=== PATIENT | female | born 1975 ===

== ENCOUNTER 2017-12-07 05:43 | Inpatient (IN) | payer OTHER ==
[2016-04-07 13:40] VITALS: BMI 25.4
[2017-12-07] MEDS ORDERED: Vasopressin 20 Units/ml Inj ONE (07:02)
[2017-12-07] MEDS ORDERED: ceFAZolin 1 gm in NS 0 GM/0 ML BAG IVPB ONE (07:02)
[2017-12-07] MEDS ORDERED: Sodium Chloride 0.9% 20 ML IV ONE (07:02)
[2017-12-07] MEDS ORDERED: Midazolam 2 MG/2 ML VIAL ONE (07:44)
[2017-12-07] MEDS ORDERED: Rocuronium 10 mg/ml (5 ml) ONE (07:44)
[2017-12-07] MEDS ORDERED: Propofol 10 mg/ml Inj (20 ML) ONE (07:44)
[2017-12-07] MEDS ORDERED: cefOXitin IV 2 gm in Dextrose 2 GM/50 ML BAG IVPB ONE (07:47)
[2017-12-07] MEDS ORDERED: Neostigmine Methylsulfate 3mg/3ml Syringe IV ONE (08:39)
[2017-12-07] MEDS ORDERED: Morphine 4 MG/ML VIAL ONE (08:39)
[2017-12-07] MEDS ORDERED: Bacitracin Ointment 30 GM TUBE ONE (08:49)
[2017-12-07] MEDS: HYDROmorphone 0.5 mg/0.5 ml ISec IVP PRN ×2 (09:21→10:10)
[2017-12-07] MEDS ORDERED: Lactated Ringer's 1,000 ML IV SCH (09:30)
[2017-12-07] MEDS ORDERED: Lactated Ringer's 1,000 ML IV ONE (10:00)
[2017-12-07] MEDS: cefOXitin IV 2 gm in Dextrose 2 GM/50 ML BAG IVPB SCH ×2 (16:30→23:58)
--- NOTE | 2017-12-07 20:28 | OP ---
PROCEDURE DATE: 12/07/2017 PREOPERATIVE DIAGNOSES: Fibroid uterus, menorrhagia. POSTOPERATIVE DIAGNOSES: Adenomyosis. PROCEDURES: Exploratory laparotomy, excision of adenomyosis. SURGEON: Nawaf Wilkinson MD. NEWSPAPER MANAGER: Chuck Neil MD ANESTHESIA: General. ESTIMATED BLOOD LOSS: 150 mL. COMPLICATIONS: Nil. FINDINGS: Globularly enlarged uterus about 14 week size with large area of adenomyosis on the anterior wall of the uterus, which was resected. No fibroids were palpable. Tubes and ovaries are normal on both the right and left side. DESCRIPTION OF PROCEDURE: After the risks, benefits, and alternatives of the planned procedures including but not limited to the infection, hemorrhage, deep vein thrombosis, atelectasis, pneumonia, pulmonary embolism, damage to the bladder, damage to the ureter, renal insufficiency, renal failure, wound infection, wound dehiscence, incisional hernia, keloid formation, damage to the large and small intestine, damage to the inferior vena cava and aorta, requiring extensive repair, anesthesia complications, risk of recurrence of fibroids and other complications were discussed with, but are not listed above. It has been explained to the patient and all her questions answered, informed consent was also obtained. Risk of persistence of bleeding were also discussed with the patient. The patient was taken to the operating room in a stable condition. Under acceptable left leg general anesthesia, she was prepped and draped in a sterile fashion after having been placed in a supine position. The abdomen was entered through a Pfannenstiel type incision, carried through the subcutaneous tissues with the fascia. Fascia was opened transversely and dissected off the rectus abdominis musculature. Rectus abdominis musculature was then in the midline to remove the parietal peritoneum, which was entered sharply and incised superiorly and inferiorly. An O'Ramón-O'Marie retractor was inserted into the abdomen. Uterus was arrogated from the pelvic cavity. The anterior wall of the uterus was infiltrated with Pitressin. A longitudinal incision was made over the anterior wall of the uterus and the area of adenomyosis was resected without entering the endometrial cavity. The excision site was then closed in layers with the first three layers being interrupted layers using 0 Vicryl suture and the superficial myometrium and serosa being closed using 0 Vicryl suture with good hemostasis. Peritoneal cavity was irrigated using copious amounts of saline. Evicel was applied to the excision site with excellent hemostasis. The abdomen was then closed in layers with 0 Chromic to the parietal peritoneum. Rectal muscles were reapproximated using interrupted sutures of 0 Chromic. Fascia was reapproximated using two separate running sutures of 0 Vicryl to maintain a midline. Subcutaneous tissues were reapproximated using interrupted sutures of 0 plane and initial skin incision was reapproximated using 4-0 Vicryl in the subcuticular fashion. Estimated blood loss of the procedure was 150 mL. Pad, needle and instrument counts were correct x2. There were no complications. Nawaf Wilkinson MD
[2017-12-07] MEDS ORDERED: Oxycodone/Acetaminophen 5/325 mg Tab PO PRN (20:40)
[2017-12-08 08:55] LABS: HEMOGLOBIN 7.5 g/dL (11.0-16.0); MEAN CELL VOLUME 57.4 fL (81.0-99.0); MEAN CORPUSCULAR HGB CONC 29.7 g/dL (33.0-37.0); MEAN PLATELET VOLUME 9.4 fL (7.2-11.7); RBC 4.4 Mil/uL (3.80-5.20); RED CELL DISTRIBUTION WIDTH 19.6 % (11.5-14.5); WHITE BLOOD COUNT 19.8 K/uL (4.8-10.8)
[2017-12-08] MEDS: cefOXitin IV 2 gm in Dextrose 2 GM/50 ML BAG IVPB SCH (09:00)
[2017-12-08] MEDS: Enoxaparin 40 mg Syringe SC SCH (09:23)
--- NOTE | 2017-12-08 13:46 | PN ---
DATE: 12/08/2017 SUBJECTIVE: The patient complains of mild incisional pain. PHYSICAL EXAMINATION: VITAL SIGNS: Stable. She is afebrile. ABDOMEN: Soft. Incision is clean and intact. Bowel sounds are normal. CHEST: Clear. CARDIAC: Reports normal heart sounds without any murmurs. LUNGS: Clear. EXTREMITIES: Nontender with no evidence of DVT. Zulema sign is negative. ASSESSMENT: The patient is status post myomectomy/excision of adenomyosis day #1. PLAN: To ambulate the patient. Advance diet as tolerated. Discontinue the intravenous fluid. Nawaf Wilkinson MD
[2017-12-08] MEDS ORDERED: Bisacodyl 5mg EC Tab PO ONE ×2 (14:00→17:30)
[2017-12-08] MEDS: Simethicone 80 mg Chewtab PO SCH ×3 (14:58→21:50)
[2017-12-08] MEDS ORDERED: Magnesium Hydroxide Susp 30 ml UD PO ONE (20:00)
[2017-12-09 00:53] VITALS: RESP 20
[2017-12-09 08:13] VITALS: BP 112/72; PULSE 65; TEMP 97.5; O2SAT 100
[2017-12-09 08:31] LABS: BASO % 0.4 % (0.0-2.0); EOS # 0.1 K/uL (0.0-0.7); EOS % 0.8 % (0.0-4.0); HEMOGLOBIN 7.3 g/dL (11.0-16.0); LYMPH # 2.4 K/uL (1.0-4.3); MEAN CELL VOLUME 56.6 fL (81.0-99.0); MEAN PLATELET VOLUME 9.4 fL (7.2-11.7); MONO # 0.6 K/uL (0.0-0.8); MONO % 4.7 % (0.0-10.0); NEUT % 76.1 % (50.0-75.0); RBC 4.3 Mil/uL (3.80-5.20); RED CELL DISTRIBUTION WIDTH 19.5 % (11.5-14.5); WHITE BLOOD COUNT 13.2 K/uL (4.8-10.8)
[2017-12-09] MEDS: Simethicone 80 mg Chewtab PO SCH (09:59)
[2017-12-09] MEDS: Enoxaparin 40 mg Syringe SC SCH (10:00)
== END 2017-12-09 10:41 | disposition home or self-care (01) | DRG 359 ==
LOC: C.9S 05:43 → C.4M 10:47
PROVIDERS: ADMIT Obstetrics & Gynecology Reproductive Endocrinology; ATTEND Obstetrics & Gynecology Reproductive Endocrinology
PROC: 0UB90ZZ Excision of Uterus, Open Approach (ICD-10-PCS; principal; 2017-12-07 07:30)
DX: N80.0 Endometriosis of uterus (principal); N92.0 Excessive and frequent menstruation with regular cycle

== ENCOUNTER 2017-12-14 11:13 | Emergency (ER) | payer OTHER ==
[2017-12-14 11:29] VITALS: BMI 27.3
[2017-12-14 11:31] VITALS: O2SAT 100
[2017-12-14] MEDS ORDERED: Sodium Chloride 0.9% 1,000 ML IV ONE (12:13)
[2017-12-14 12:30] LABS: BASO # 0.1 K/uL (0.0-0.2); BASO % 0.7 % (0.0-2.0); EOS # 0.1 K/uL (0.0-0.7); EOS % 1.2 % (0.0-4.0); HEMOGLOBIN 7.5 g/dL (11.0-16.0); LYMPH # 2.2 K/uL (1.0-4.3); LYMPH % 25.1 % (20.0-40.0); MEAN CELL VOLUME 57.3 fL (81.0-99.0); MEAN CORPUSCULAR HEMOGLOBIN 17.3 pg (27.0-31.0); MEAN CORPUSCULAR HGB CONC 30.2 g/dL (33.0-37.0); MEAN PLATELET VOLUME 9.1 fL (7.2-11.7); MONO # 0.6 K/uL (0.0-0.8); MONO % 7.2 % (0.0-10.0); NEUT # 5.8 K/uL (1.8-7.0); NEUT % 65.8 % (50.0-75.0); NRBC % 0.1 % (0.0-2.0); RBC 4.35 Mil/uL (3.80-5.20); RED CELL DISTRIBUTION WIDTH 20.3 % (11.5-14.5); WHITE BLOOD COUNT 8.8 K/uL (4.8-10.8)
[2017-12-14 12:37] LABS: SQUAMOUS EPITHIAL < 1 /hpf (0-5); URINE BILIRUBIN NEGATIVE (NEGATIVE); URINE BLOOD 3+ (NEGATIVE); URINE CLARITY Clear (Clear); URINE COLOR Colorless (YELLOW); URINE GLUCOSE (UA) NORMAL (Normal); URINE LEUKOCYTE ESTERASE TRACE Leu/uL (Negative); URINE PROTEIN NEGATIVE (NEGATIVE); URINE UROBILINOGEN NORMAL mg/dL (0.2-1.0)
--- NOTE | 2017-12-14 12:41 | C.PDOC ---
History Of Present Illness 42 y/o female with history of Anemia presents to ED with complaints of lower abdominal pain and vaginal bleeding for 3 days. Patient states she had a myomectomy on 12/07/17 and has a scheduled appointment with OB Dr Londono tomorrow , but pain was worse prompting visit to ED. Patient takes Tylenol #3 and Keflex at home. Patient admits to feeling lightheaded this morning, and denies fever or dysuria. Time Seen by Provider: 12/14/17 11:55 Chief Complaint (Nursing): Female Genitourinary History Per: Patient, [employer] ([facility] [place] [id number] via [employer]) History/Exam Limitations: language barrier Onset/Duration Of Symptoms: Days Current Symptoms Are (Timing): Still Present Past Medical History Reviewed: Historical Data, Nursing Documentation, Vital Signs Vital Signs: Last Vital Signs Temp 98.1 F 12/14/17 13:30 Pulse 71 12/14/17 13:30 Resp 18 12/14/17 13:30 BP 125/84 12/14/17 13:30 Pulse Ox 100 12/14/17 13:58 - Medical History PMH: No Chronic Diseases, Anemia Other Surgeries: Myomectomy - [facility] Procedures EXCISION OF UTERUS, OPEN APPROACH (12/07/17) Family History: States: Unknown Family Hx - Social History Hx Alcohol Use: No Hx Substance Use: No Review Of Systems Constitutional: Positive for: Sweats. Negative for: Fever, Chills Cardiovascular: Negative for: Chest Pain Respiratory: Negative for: Shortness of Breath Gastrointestinal: Negative for: Abdominal Pain Genitourinary: Positive for: Vaginal Bleeding, Pelvic Pain. Negative for: Dysuria Musculoskeletal: Negative for: Back Pain Skin: Negative for: Rash Physical Exam - Physical Exam Appears: Non-toxic, No Acute Distress Skin: Warm, Dry, Pale Head: Atraumatic, Normacephalic Eye(s): bilateral: Normal Inspection, EOMI, Conjunctiva Pale Oral Mucosa: Moist Neck: Supple Cardiovascular: Rhythm Regular Respiratory: Normal Breath Sounds, No Rales, No Rhonchi, No Wheezing Gastrointestinal/Abdominal: Soft, No Tenderness, No Guarding, No Rebound, Other (incisional wound on suprapubic area. 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 Patient remained afebrile, nontoxic and no signs of hemodynamic instability. 1252- spoke to Dr. Wilkinson, discussed including lab findings, states patient has anemia and this was not acute change. He states if patient stable to follow up at office tomorrow 11am Using wharf worker I discussed results with patient and the plan for discharge with follow up. She understands and will follow up. Disposition - Disposition Referrals: Nawaf Wilkinson MD [Staff Provider] - Disposition: HOME/ ROUTINE Disposition Time: 13:30 Condition: STABLE Additional Instructions: PLEASE SEE DR LONDONO IN OFFICE TOMORROW MORNING AT 11AM Instructions: Acute Pelvic Pain (DC) Forms: [employer] (Kazakh) - POA Present On Arrival: None - Clinical Impression Clinical Impression: Post-op pain, Vaginal bleeding - PA / CLERICAL OFFICE / Resident Statement MD/DO has reviewed & agrees with the documentation as recorded. - Scribe Statement The provider has reviewed the documentation as recorded by the Martinibmariusz Murphy All medical record entries made by the Eddie were at my direction and personally dictated by me. I have reviewed the chart and agree that the record accurately reflects my personal performance of the history, physical exam, medical decision making, and the department course for this patient. I have also personally directed, reviewed, and agree with the discharge instructions and disposition.
[2017-12-14 12:43] LABS: ALB/GLOB RATIO 1.2 (1.0-2.1); ALT/SGPT 24 U/L (9-52); AST/SGOT 19 U/L (14-36); BLOOD UREA NITROGEN 9 mg/dL (7-17); CALCIUM 8.9 mg/dl (8.6-10.4); GFR NON-AFRICAN AMERICAN > 60; INR 1.1; PROTHROMBIN TIME 11.8 SECONDS (9.7-12.2)
[2017-12-14] MEDS ORDERED: Morphine 4 MG/ML VIAL ONE (13:00)
[2017-12-14 13:32] VITALS: BP 125/84; PULSE 71; RESP 18; TEMP 98.1
== END 2017-12-14 13:38 | disposition home or self-care (01) ==
LOC: C.ER 11:13
DX: G89.18 Other acute postprocedural pain (principal); N93.9 Abnormal uterine and vaginal bleeding, unspecified
CPT/HCPCS: 80053; 81001; 85025; 85610; 85730; 86850; 86900; 96361; 96374; 99284; J2270; J7030